=== PATIENT | male | born 1965 | race Two or more races ===

== ENCOUNTER → 2024-10-28 14:46 | Outpatient (REF) | payer OTHER, SELFPAY | LOC: HWRAD 14:46 | PROVIDERS: ATTENDING PHYSICIAN Physician Assistant | DX: M25.562 Pain in left knee (principal) | CPT/HCPCS: 73564 ==

== ENCOUNTER → 2024-11-04 16:25 | Outpatient (REF) | payer OTHER, SELFPAY | LOC: RAD 16:25 | PROVIDERS: ATTENDING PHYSICIAN Physician Assistant; FAMILY PHYSICIAN Nurse Practitioner Family | DX: R10.9 Unspecified abdominal pain (principal) | CPT/HCPCS: 74176 ==

== ENCOUNTER 2024-12-17 08:40 | Outpatient (RCR) | payer OTHER, SELFPAY | END 2024-12-17 23:59 | disposition home or self-care (01) | LOC: CRHB 08:40 | PROVIDERS: ATTENDING PHYSICIAN Internal Medicine Cardiovascular Disease; FAMILY PHYSICIAN Nurse Practitioner Family | DX: I21.01 ST elevation (STEMI) myocardial infarction involving left main coronary artery (principal); Z95.5 Presence of coronary angioplasty implant and graft; I25.10 Atherosclerotic heart disease of native coronary artery without angina pectoris; I25.2 Old myocardial infarction | CPT/HCPCS: 93798 ==

== ENCOUNTER → 2025-01-05 14:23 | Outpatient (REF) | payer OTHER, SELFPAY | LOC: DHSLP 14:23 | PROVIDERS: ATTENDING PHYSICIAN Internal Medicine; FAMILY PHYSICIAN Nurse Practitioner Family | DX: G47.33 Obstructive sleep apnea (adult) (pediatric) (principal); G47.61 Periodic limb movement disorder | CPT/HCPCS: 95810 ==

== ENCOUNTER → 2025-03-03 08:15 | Outpatient (REF) | payer OTHER, SELFPAY | LOC: RCS 08:15 | PROVIDERS: ATTENDING PHYSICIAN Internal Medicine Cardiovascular Disease; FAMILY PHYSICIAN Nurse Practitioner Family | DX: I21.09 ST elevation (STEMI) myocardial infarction involving other coronary artery of anterior wall (principal) | CPT/HCPCS: 93306 ==

== ENCOUNTER → 2025-04-28 11:41 | Outpatient (REF) | payer OTHER, SELFPAY | LOC: MRI 3T 11:41 | PROVIDERS: ATTENDING PHYSICIAN Specialist; FAMILY PHYSICIAN Nurse Practitioner Family | DX: R97.20 Elevated prostate specific antigen [PSA] (principal) | CPT/HCPCS: 72197; A9575 ==